=== PATIENT | female | born 1950 | race Caucasian/White ===

== ENCOUNTER → 2016-12-30 | Outpatient (CLI) | payer MEDICARE, BC | END | disposition home or self-care (01) | LOC: PCVCCLINIC 15:31 | PROVIDERS: ATTEND Internal Medicine | DX: I10 Essential (primary) hypertension (principal); E78.5 Hyperlipidemia, unspecified; I35.0 Nonrheumatic aortic (valve) stenosis; R07.9 Chest pain, unspecified | CPT/HCPCS: 80061; G0463 ==

== ENCOUNTER → 2017-01-06 | Outpatient (CLI) | payer BC, MEDICARE ==
[~2017-01-06] MED LIST: REGADENOSON 0.4 MG/5 ML DISP.SYRIN. IV ONE
== END | disposition home or self-care (01) ==
LOC: PCVCIMAG 08:42
PROVIDERS: ATTEND Internal Medicine
DX: R07.9 Chest pain, unspecified (principal); E78.5 Hyperlipidemia, unspecified; I10 Essential (primary) hypertension; I35.0 Nonrheumatic aortic (valve) stenosis
CPT/HCPCS: 78452; 93017; A9500; J2785

== ENCOUNTER → 2017-02-19 | Outpatient (CLI) | payer MEDICARE, BC | END | disposition home or self-care (01) | LOC: PCVCCLINIC 15:00 | PROVIDERS: ATTEND Internal Medicine | DX: I25.10 Atherosclerotic heart disease of native coronary artery without angina pectoris (principal); I10 Essential (primary) hypertension; E78.5 Hyperlipidemia, unspecified; I35.0 Nonrheumatic aortic (valve) stenosis; Z87.891 Personal history of nicotine dependence | CPT/HCPCS: G0463 ==

== ENCOUNTER → 2017-08-25 | Outpatient (CLI) | payer MEDICARE, BC | END | disposition home or self-care (01) | LOC: PCVCCLINIC 11:20 | PROVIDERS: ATTEND Internal Medicine | DX: I25.10 Atherosclerotic heart disease of native coronary artery without angina pectoris (principal); I10 Essential (primary) hypertension; E78.5 Hyperlipidemia, unspecified; R07.9 Chest pain, unspecified; Z79.899 Other long term (current) drug therapy | CPT/HCPCS: 80061; 93005; G0463 ==

== ENCOUNTER → 2017-11-24 | Outpatient (CLI) | payer MEDICARE, BC | END | disposition home or self-care (01) | LOC: PCVCCLINIC 11:29 | DX: E78.5 Hyperlipidemia, unspecified (principal); I25.10 Atherosclerotic heart disease of native coronary artery without angina pectoris; I10 Essential (primary) hypertension | CPT/HCPCS: 80061 ==

== ENCOUNTER → 2018-05-25 | Outpatient (CLI) | payer MEDICARE, BC | END | disposition home or self-care (01) | LOC: PCVCCLINIC 13:49 | PROVIDERS: ATTEND Internal Medicine | DX: E78.5 Hyperlipidemia, unspecified (principal); I25.10 Atherosclerotic heart disease of native coronary artery without angina pectoris; I10 Essential (primary) hypertension | CPT/HCPCS: 80061 ==

== ENCOUNTER → 2018-06-17 | Outpatient (CLI) | payer BC, MEDICARE | END | disposition home or self-care (01) | LOC: PCVCCLINIC 13:49 | PROVIDERS: ATTEND Internal Medicine | DX: I25.10 Atherosclerotic heart disease of native coronary artery without angina pectoris (principal); I35.0 Nonrheumatic aortic (valve) stenosis; E78.5 Hyperlipidemia, unspecified; R00.2 Palpitations; Z79.899 Other long term (current) drug therapy; Z87.891 Personal history of nicotine dependence | CPT/HCPCS: 93005; G0463 ==

== ENCOUNTER → 2018-07-13 | Outpatient (CLI) | payer BC, MEDICARE ==
--- NOTE | 2018-07-13 14:47 | PCVCIMAG ---
APPROVED REPORT Study performed: 07/13/2018 13:42:11 EXAM: Comprehensive 2D, Doppler, and color-flow Echocardiogram Patient Location: Echo lab Status: routine BSA: 1.92 HR: 71 bpmBP: 138/80 mmHg Rhythm: NSR Other Information Study Quality: Good Risk Factors: Cardiac Risk Factors: Hyperlipidemia, HTN Indications Aortic Valve Disease CAD Hypertension/HDD 2D Dimensions IVSd: 12.20 (7-11mm)LVOT Diam: 18.93 (18-24mm) LVDd: 39.20 mm PWd: 12.36 (7-11mm)Ascending Ao: 31.34 (22-36mm) LVDs: 29.05 (25-40mm) Left Atrium: 39.46 (27-40mm) Aortic Root: 22.36 mm LV Single Plane 4CH: 54.21 % Volumes Left Atrial Volume (Systole) Single Plane 4CH: 53.37 mLSingle Plane 2CH: 46.30 mL LA ESV Index: 28.00 mL/m2 Aortic Valve AoV Peak Angelo.: 4.25 m/s AO Peak Gr.: 72.08 mmHgLVOT Max P.51 mmHg AO Mean Gr.: 43.35 mmHgLVOT Mean P.87 mmHg AO V2 Mean: 3.13 m/sLVOT Max V: 1.17 m/s AO V2 VTI: 112.73 cmLVOT Mean V: 0.81 m/s PATRICK (VTI): 0.79 [id number] V1 VTI: 31.63 cm PATRICK Vmax: 0.78 cm2 AI Vmax: 3.44 m/sSV (LVOT): 89.00 mL AI Haralson: 2.10 m/s2 AI PHT: 473.79 ms Mitral Valve E/A Ratio: 1.1 MV Decel. Time: 226.07 ms MV E Max Angelo.: 1.26 m/s MV A Angelo.: 1.10 m/s TDI E/Lateral E': 18.00E/Medial E': 18.00 Medial E' Angelo.: 0.07 m/s Lateral E' Angelo.: 0.07 m/s Pulmonary Valve PV Peak Gr.: 5.93 mmHg Pulmonary Vein P Vein S: 0.52 m/sP Vein A: 0.30 m/s P Vein D: 0.43 m/sP Vein A Dur.: 83.0 msec P Vein S/D Ratio: 1.21 Tricuspid Valve TR Peak Angelo.: 2.63 m/s TR Peak Gr.: 27.75 mmHg Left Ventricle The left ventricle is normal size. There is normal LV segmental wall motion. Mild to moderate concentric left ventricular hypertrophy. Left ventricular systolic function is normal. The left ventricular ejection fraction is within the normal range. LVEF is 55-60%. The left ventricular diastolic function is normal. Right Ventricle Right ventricle is grossly normal in size. The right ventricular systolic function is normal. Atria The left atrium size is normal. The right atrium size is normal. Aortic Valve Aortic valve leaflets are moderately thickened. Mild aortic regurgitation. Severe aortic stenosis. Highest mean aortic valve gradient is 44mmHg. Peak aortic valve gradient is 72mmHg. Calculated PATRICK by the continuity equation is 0.8cm2. Mitral Valve The mitral valve is normal in structure. Mild mitral regurgitation. No evidence of mitral valve stenosis. Tricuspid Valve The tricuspid valve is normal in structure. Trace tricuspid regurgitation. Pulmonary artery pressure is 35mmHg. Pulmonic Valve The pulmonary valve is normal in structure. Trace pulmonic regurgitation. Great Vessels The aortic root is normal in size. IVC is normal in size and collapses >50% with inspiration. Pericardium There is no pericardial effusion. <Conclusion> The left ventricle is normal size. LVEF is 55-60%. Aortic valve leaflets are moderately thickened. Mild aortic regurgitation. Severe aortic stenosis. Highest mean aortic valve gradient is 44mmHg. Peak aortic valve gradient is 72mmHg. Calculated PATRICK by the continuity equation is 0.8cm2. The mitral valve is normal in structure. Mild mitral regurgitation. The tricuspid valve is normal in structure. Trace tricuspid regurgitation. Pulmonary artery pressure is 35mmHg. The pulmonary valve is normal in structure. There is no pericardial effusion.
== END | disposition home or self-care (01) ==
LOC: PCVCIMAG 13:00
PROVIDERS: ATTEND Internal Medicine
DX: I08.0 Rheumatic disorders of both mitral and aortic valves (principal); I25.10 Atherosclerotic heart disease of native coronary artery without angina pectoris; R00.2 Palpitations
CPT/HCPCS: 93306

== ENCOUNTER → 2018-07-27 | Outpatient (CLI) | payer BC, MEDICARE ==
[~2018-07-27] MED LIST changes: +DIAZEPAM 10 MG TABLET. ONE; +IOHEXOL 350 MG/ML 100 ML VIAL. ONE; +IV NORMAL SALINE 1000ML BAG 1,000 ML ONE; +LIDOCAINE 1% Multi-Dose 50 ML VIAL. ONE; +MIDAZOLAM HCL/PF 2 MG/2 ML VIAL. ONE; -REGADENOSON 0.4 MG/5 ML DISP.SYRIN. IV ONE; +fentaNYL PF VIAL 100 MCG/2 ML VIAL ONE
--- NOTE | 2018-07-30 13:22 | PCVCINTER ---
APPROVED REPORT Study performed: 07/27/2018 11:52:46 Patient Details Patient Status: Out-Patient Room #: Event Personnel Clovis Jones, RT, Jannette Hernández, RT(R)(), Elizabeth Santos RN, Alejandro Kruger MD Procedures Performed Left and right coronary angiography, supervision of conscious sedation Indication Valvular heart disease Procedure Narrative The patient was brought electively to the Cardiac Catheterization Laboratory and was prepped and draped in a sterile manner. The right femoral was infiltrated with 1% Lidocaine subcutaneous anesthesia. A 4F sheath was inserted into the right femoral artery. Coronary angiography was performed using coronary diagnostic catheters. The right coronary system was accessed and visualized with a JR4 catheter. The left coronary system was accessed and visualized with a JL4 catheter. Diagnostic Cath Left MainNormal origin and caliber tapers in its distal portion to a less than 50% narrowing. It bifurcates the left anterior descending left circumflex LADSmall-caliber type II vessel which in its proximal course has luminal irregularities. In the proximal portion of the mid LAD there is a segment that has irregularities of up to 50-60%. The vessel then reconstitutes continues in the anterior interventricular sulcus terminates in the apical a bifurcating vessel free of high-grade disease. Diagonal 1Small-caliber vessel coursing on the anterolateral wall with luminal irregularities and no high-grade obstructive lesions CircumflexModerate caliber vessel has a 50% proximal lesion prior to the origin of first marginal branch. The first marginal branch has moderate disease but no high-grade lesions. The circumflex continues posteriorly terminates as small posterior wall branches. [id number] to moderate caliber vessel with proximal fourth having irregularities of no greater than 50% does not appear to be flow-limiting Right CoronaryModerate caliber vessel of normal origin bryson patent proximal stent. It then continues on giving rise to a small to moderate caliber RV marginal branch. The RCA proper continues to the crux of the heart with a small posterior descending artery arises feel high-grade disease and terminates as small postero-circulation including artery to the AV node and a posterolateral branch which is small in caliber and length R PDASmall-caliber vessel without high-grade disease Left Ventriculography Left Ventriculography was not performed. Hemodynamics The aortic pressure is 128/64 mmHg with a mean of mmHg. Conclusion 1. Moderate two-vessel coronary artery disease 2. Patent stent to the proximal right coronary artery 3. Normal hemodynamics Recommendations Valve Surgery
== END | disposition home or self-care (01) ==
LOC: PCVCINTER 12:37
PROVIDERS: ATTEND Internal Medicine
DX: I25.10 Atherosclerotic heart disease of native coronary artery without angina pectoris (principal); I10 Essential (primary) hypertension; E78.5 Hyperlipidemia, unspecified; Z98.890 Other specified postprocedural states; Z87.891 Personal history of nicotine dependence; Z72.89 Other problems related to lifestyle; Z79.899 Other long term (current) drug therapy
CPT/HCPCS: 93454; 99152; J1644; J2250; J3010; J7030; Q9967; 93458; C1751; C1769; C1894

== ENCOUNTER → 2018-08-30 | Outpatient (CLI) | payer BC, MEDICARE | END | disposition home or self-care (01) | LOC: PCVCCLINIC 13:23 | PROVIDERS: ATTEND Internal Medicine | DX: I25.10 Atherosclerotic heart disease of native coronary artery without angina pectoris (principal); I35.0 Nonrheumatic aortic (valve) stenosis; E78.5 Hyperlipidemia, unspecified; I10 Essential (primary) hypertension; Z79.899 Other long term (current) drug therapy; Z87.891 Personal history of nicotine dependence | CPT/HCPCS: G0463 ==

== ENCOUNTER → 2018-11-30 | Outpatient (CLI) | payer BC, MEDICARE | END | disposition home or self-care (01) | LOC: PCVCCLINIC 13:30 | PROVIDERS: ATTEND Internal Medicine | DX: I25.10 Atherosclerotic heart disease of native coronary artery without angina pectoris (principal); E78.5 Hyperlipidemia, unspecified; I10 Essential (primary) hypertension; G89.18 Other acute postprocedural pain; I82.419 Acute embolism and thrombosis of unspecified femoral vein; Z79.899 Other long term (current) drug therapy; Z79.82 Long term (current) use of aspirin; Z87.891 Personal history of nicotine dependence | CPT/HCPCS: G0463 ==